=== PATIENT | male | born 1945 | race Hispanic/Latino ===

== ENCOUNTER 2024-01-29 19:30 | Emergency (ER) | payer OTHER | END 2024-01-29 22:36 | disposition home or self-care (01) | LOC: EDBD 19:30 → CSHERS 19:30 | DX: S09.90XA Unspecified injury of head, initial encounter (principal); E11.9 Type 2 diabetes mellitus without complications; I11.0 Hypertensive heart disease with heart failure; I50.9 Heart failure, unspecified; E03.9 Hypothyroidism, unspecified; F17.210 Nicotine dependence, cigarettes, uncomplicated; W22.8XXA Striking against or struck by other objects, initial encounter; Z79.82 Long term (current) use of aspirin; Z79.899 Other long term (current) drug therapy | CPT/HCPCS: 70450; 72125; 93005; 93010; G0390 ==

== ENCOUNTER 2024-06-12 10:35 | Inpatient (IN) | payer OTHER ==
[2024-06-12 11:27] LABS: #Basophils 0.04 10x3/uL (0.0-0.2); #Eosinophils 0.38 10x3/uL (0.0-0.5); #Monocytes 0.76 10x3/uL (0.0-1.1); #Neutrophils 7.32 10x3/uL (1.5-8.4); %Basophils 0.4 % (0.0-2.0); %Eosinophils 3.9 % (0.0-6.0); %Lymphocytes 12.6 % (18.0-47.0); %Monocytes 7.8 % (0.0-10.0); Hematocrit 24.8 % (38.8-50.0); Hemoglobin 7.1 g/dL (13.5-17.5); Mean Corpuscular HGB CONC 28.6 g/dL (32.0-36.0); Mean Corpuscular Hemoglobin 20.6 pg (27.0-33.0); Mean Corpuscular Volume 72.1 fL (81.2-95.1); Mean Platelet Volume 9.3 fL (7.4-10.4); Platelet Count 273 10x3/uL (150-450); RBC Distribution Width 15.1 % (11.5-14.5); Red Blood Cell (RBC) Count 3.44 10x6/uL (4.32-5.72); White Blood Cell (WBC) Count 9.76 10x3/uL (3.5-10.5)
[2024-06-12 11:44] LABS: ALT (SGPT) 10 U/L (8-55); AST (SGOT) 9 U/L (5-34); Albumin 3.6 g/dL (3.4-4.8); Alkaline Phosphatase 94 U/L (40-110); Anion Gap 15 mmol/L (10-20); BUN (Urea Nitrogen) 33 mg/dL (8.4-25.7); Bilirubin, Total 0.4 mg/dL (0.2-1.2); Calc. Creatinine Clearance 0 mL/min (70-130); Calcium 8.3 mg/dL (7.8-10.44); Carbon Dioxide 18 mmol/L (23-31); Chloride 107 mmol/L (98-107); Estimated GFR 39; Globulin 3.3 g/dL (2.4-3.5); Glucose 274 mg/dL (83-110); Magnesium 1.1 mg/dL (1.6-2.6); Potassium 4.9 mmol/L (3.5-5.1); Protein, Total 6.9 g/dL (5.8-8.1); Sodium 135 mmol/L (136-145)
[2024-06-12 12:44] LABS: Anisocytosis SLIGHT = 6-15 cells (100X) (0-5/hpf); Burr Cells SLIGHT = 2-5 cells (100X) (0-1/hpf); Hypochromia SLIGHT = 6-15 cells (100X) (0-5/hpf); Microcytosis SLIGHT = 6-15 cells (100X) (0-5/hpf); Ovalocytes SLIGHT = 2-5 cells (100X) (0-1/hpf); Platelet Adequacy Comment Appears Adequate; Poikilocytosis SLIGHT = 6-15 cells (100X) (0-5/hpf); Target Cells SLIGHT = 2-5 cells (100X) (0-1/hpf)
[2024-06-12] MEDS ORDERED: Ondansetron PF 4 MG/2 ML Vial IVP PRN (14:02)
[2024-06-12] MEDS ORDERED: Calcium Carbonate 500 MG ChewTAB PO PRN (14:02)
[2024-06-12] MEDS ORDERED: Senokot S 8.6-50 MG TAB PO PRN (14:02)
[2024-06-12] MEDS ORDERED: Acetaminophen 325 MG TAB PO PRN (14:02)
[2024-06-12 14:16] LABS: Iron 14 ug/dL (65-175); Iron Binding Capacity, Total 469 mcg/dL (261-462)
[2024-06-12] MEDS ORDERED: Dextrose 50% Abboject 50 ML SYRINGE SLOW IVP PRN (14:47)
[2024-06-12] MEDS ORDERED: Dextrose 5% in Water 1,000 ML IV PRN (14:47)
[2024-06-12] MEDS ORDERED: Glucagon 1 MG/ML KIT IM PRN (14:47)
[2024-06-12] MEDS: Sodium Chloride 0.9% 1,000 ML IV SCH (16:08)
[2024-06-12 16:13] VITALS: BMI 23.0
[2024-06-12] MEDS: Magnesium 2 GM/50 ML(in water) 2 GM in Premix 1 BAG IVPB SCH (16:35)
[2024-06-12] MEDS: Pantoprazole 40 MG VIAL IVP SCH ×2 (17:20→21:05)
[2024-06-12] MEDS: Sodium Ferric Gluconate 250 MG in Sodium Chloride 0.9% 250 ML 250 ML IVPB SCH (18:06)
[2024-06-12] MEDS ORDERED: Rosuvastatin 20 MG TAB PO SCH (21:00)
[2024-06-12] MEDS: GoLYTELY 4,000 ml Bottle PO SCH (21:04)
[2024-06-13 05:44] LABS: #Basophils 0.06 10x3/uL (0.0-0.2); #Eosinophils 0.43 10x3/uL (0.0-0.5); #Monocytes 0.78 10x3/uL (0.0-1.1); %Basophils 0.6 % (0.0-2.0); %Eosinophils 4.5 % (0.0-6.0); %Lymphocytes 13.6 % (18.0-47.0); %Monocytes 8.2 % (0.0-10.0); %Neutrophils 72.9 % (40.0-75.0); Hematocrit 29.7 % (38.8-50.0); Hemoglobin 9.4 g/dL (13.5-17.5); Mean Corpuscular HGB CONC 31.6 g/dL (32.0-36.0); Mean Corpuscular Hemoglobin 22.9 pg (27.0-33.0); Mean Corpuscular Volume 72.4 fL (81.2-95.1); Mean Platelet Volume 9.5 fL (7.4-10.4); Platelet Count 299 10x3/uL (150-450); RBC Distribution Width 17.1 % (11.5-14.5); White Blood Cell (WBC) Count 9.48 10x3/uL (3.5-10.5)
[2024-06-13 05:46] LABS: ALT (SGPT) 8 U/L (Less than 45); AST (SGOT) 15 U/L (11-34); Albumin 3.7 g/dL (3.1-4.5); Alkaline Phosphatase 99 U/L (40-110); Anion Gap 13 mmol/L (10-20); BUN (Urea Nitrogen) 21 mg/dL (8.4-25.7); Bilirubin, Total 1.4 mg/dL (0.3-1.2); Calc. Creatinine Clearance 48 mL/min (70-130); Calcium 8.6 mg/dL (7.8-10.44); Carbon Dioxide 19 mmol/L (23-31); Chloride 110 mmol/L (98-107); Estimated GFR 60; Globulin 3.2 g/dL (2.4-3.5); Glucose 159 mg/dL (83-110); Potassium 4.4 mmol/L (3.5-5.1); Protein, Total 6.9 g/dL (5.8-8.1); Sodium 138 mmol/L (136-145)
[2024-06-13] MEDS: Levothyroxine Sodium 75 MCG TAB PO SCH (06:36)
[2024-06-13 08:22] LABS: Magnesium 1.9 mg/dL (1.6-2.6)
[2024-06-13] MEDS ORDERED: Lantus 1000 UNITS/10 ML VIAL SC SCH (09:00)
[2024-06-13] MEDS ORDERED: GABAPENTIN 800 MG PO SCH (09:00)
[2024-06-13] MEDS: Multivitamin W/ Minerals 1 TAB PO SCH (09:55)
[2024-06-13] MEDS: Cyanocobalamin (Vitamin B-12) 1,000 MCG TAB PO SCH (09:55)
[2024-06-13] MEDS: Folic Acid 1 MG TAB PO SCH (09:55)
[2024-06-13] MEDS: Lantus 1000 UNITS/10 ML VIAL SC SCH (10:02)
[2024-06-13] MEDS: Lactated Ringer's 1,000 ML IV SCH (10:02)
[2024-06-13] MEDS: Magnesium 2 GM/50 ML(in water) 2 GM in Premix 1 BAG IVPB SCH (10:19)
[2024-06-13 10:27] VITALS: BMI 23.0
[2024-06-13] MEDS ORDERED: fentaNYL 50 mcg/mL 1 mL Vial ONE (13:07)
[2024-06-13] MEDS ORDERED: Lidocaine 1% PF 5 ML VIAL ONE (13:07)
[2024-06-13] MEDS ORDERED: PROPOFOL 20 ML ONE (13:07)
[2024-06-13 13:24] LABS: Hemoglobin A1c 8.6 % (4.0-6.0)
[2024-06-13] MEDS ORDERED: PHENYLEPHRINE-NS 100 MCG/ML 10 ML SYRINGE ONE (13:32)
[2024-06-13] MEDS ORDERED: Simethicone 40 MG/0.6 ML Drop 30 ML BOT ONE (13:42)
[2024-06-13] MEDS: Insulin Lispro 100 UNIT/ML 10 ML VIAL SC PRN ×2 (17:40→20:41)
[2024-06-13] MEDS: PARoxetine 20 MG TAB PO SCH (20:42)
[2024-06-13] MEDS: Melatonin 3 MG TAB PO SCH (20:42)
[2024-06-14 05:16] LABS: #Basophils 0.07 10x3/uL (0.0-0.2); #Eosinophils 0.36 10x3/uL (0.0-0.5); #Monocytes 1.15 10x3/uL (0.0-1.1); #Neutrophils 12.21 10x3/uL (1.5-8.4); %Basophils 0.5 % (0.0-2.0); %Eosinophils 2.4 % (0.0-6.0); %Lymphocytes 7.9 % (18.0-47.0); %Monocytes 7.6 % (0.0-10.0); %Neutrophils 81.2 % (40.0-75.0); Hematocrit 28.7 % (38.8-50.0); Hemoglobin 8.9 g/dL (13.5-17.5); Mean Corpuscular Hemoglobin 22.4 pg (27.0-33.0); Mean Corpuscular Volume 72.3 fL (81.2-95.1); Mean Platelet Volume 9.1 fL (7.4-10.4); Platelet Count 282 10x3/uL (150-450); RBC Distribution Width 16.9 % (11.5-14.5); Red Blood Cell (RBC) Count 3.97 10x6/uL (4.32-5.72); White Blood Cell (WBC) Count 15.04 10x3/uL (3.5-10.5)
[2024-06-14 05:27] LABS: Anion Gap 11 mmol/L (10-20); BUN (Urea Nitrogen) 15 mg/dL (8.4-25.7); Calc. Creatinine Clearance 47 mL/min (70-130); Calcium 9.1 mg/dL (7.8-10.44); Carbon Dioxide 22 mmol/L (23-31); Chloride 110 mmol/L (98-107); Estimated GFR 59; Glucose 123 mg/dL (83-110); Magnesium 1.8 mg/dL (1.6-2.6); Potassium 4.1 mmol/L (3.5-5.1); Sodium 139 mmol/L (136-145)
[2024-06-14 12:22] VITALS: BP 157/72; TEMP 97.5
== END 2024-06-14 15:30 | DRG 812 ==
LOC: CSHERS 10:35 → SUATTDRO 10:35 → CSHTELE 13:57 → OBSVTOIN 06-14 07:50
PROVIDERS: ADMIT Internal Medicine; ATTEND Internal Medicine
PROC: 30233N1 Transfusion of Nonautologous Red Blood Cells into Peripheral Vein, Percutaneous Approach (ICD-10-PCS; principal; 2024-06-12)
PROC: 0DB98ZX Excision of Duodenum, Via Natural or Artificial Opening Endoscopic, Diagnostic (ICD-10-PCS; 2024-06-13)
PROC: 3E033XZ Introduction of Vasopressor into Peripheral Vein, Percutaneous Approach (ICD-10-PCS; 2024-06-13)
PROC: 0DBH8ZX Excision of Cecum, Via Natural or Artificial Opening Endoscopic, Diagnostic (ICD-10-PCS; 2024-06-13)
PROC: 0DBM8ZX Excision of Descending Colon, Via Natural or Artificial Opening Endoscopic, Diagnostic (ICD-10-PCS; 2024-06-13)
DX: D46.9 Myelodysplastic syndrome, unspecified (principal); N17.9 Acute kidney failure, unspecified; N18.9 Chronic kidney disease, unspecified; E83.42 Hypomagnesemia; I12.9 Hypertensive chronic kidney disease with stage 1 through stage 4 chronic kidney disease, or unspecified chronic kidney disease; I25.10 Atherosclerotic heart disease of native coronary artery without angina pectoris; E78.5 Hyperlipidemia, unspecified; E11.51 Type 2 diabetes mellitus with diabetic peripheral angiopathy without gangrene; F03.90 Unspecified dementia, unspecified severity, without behavioral disturbance, psychotic disturbance, mood disturbance, and anxiety; Z95.1 Presence of aortocoronary bypass graft; Z90.49 Acquired absence of other specified parts of digestive tract
CPT/HCPCS: 36415; 36416; 36430; 80048; 80053; 82274; 82607; 82728; 83036; 83540; 83550; 83735; 84207; 85025; 85046; 86850; 86900; 86901; 88305; 94760; 96374; 96375; 96376; G0378; J1815; J2470; J2704; J2916; J3010; J3475; J7030; J7050; J7120; P9016